=== PATIENT | male | born 1980 | race African-American/Black ===

== ENCOUNTER 2017-11-17 19:54 | Emergency (ER) | payer SELFPAY ==
[~2017-11-17] VITALS: Ht 175.3 cm; Wt 77.0 kg
[2017-11-18 00:49] LABS: BASOPHILS % 0.6 % (0.0-2.0); EOSINOPHILS % 0.5 % (0.0-5.0); HEMATOCRIT. 40.7 % (42.0-52.0); HEMOGLOBIN. 13.7 g/dL (14.0-18.0); LYMPHOCYTES % 26.8 % (20.0-50.0); MEAN CORPUSCULAR HEMOGLOBIN 29.9 pg (28.0-32.0); MEAN CORPUSCULAR VOLUME 88.6 fL (80.0-94.0); MEAN PLATELET VOLUME 7.8 fl (7.4-10.4); MONOCYTES % 8.3 % (2.0-8.0); NEUTROPHILS % 63.8 % (40.0-76.0); PLATELET 298 x1000/uL (130-400); RED CELL DISTRIBUTION WIDTH 15.2 % (11.6-14.6)
[2017-11-18 00:55] LABS: CHLORIDE 103 mEq/L (98-107)
[2017-11-18 00:58] LABS: ETHANOL BLOOD < 10 mg/dL
[2017-11-18] MEDS ORDERED: IBUPROFEN 600MG TABLET PO STA (01:43)
[2017-11-18 03:10] LABS: METHADONE URINE SCREEN NEGATIVE (NEGATIVE)
[2017-11-18 03:11] LABS: *AMPHETAMINES SCREEN URINE NEGATIVE (NEGATIVE); *BARBITURATES SCREEN URINE NEGATIVE (NEGATIVE); *BENZODIAZEPINES SCREEN URINE NEGATIVE (NEGATIVE); CANNABINOID URINE SCREEN PRESUMTIVE POSITIVE (NEGATIVE); OPIATES URINE SCREEN NEGATIVE (NEGATIVE); PHENCYCLIDINE URINE SCREEN NEGATIVE (NEGATIVE)
[2017-11-18 03:12] LABS: *COCAINE SCREEN URINE NEGATIVE (NEGATIVE)
[2017-11-18 04:40] VITALS: BP 131/78
== END 2017-11-18 04:41 | disposition home or self-care (01) ==
LOC: ER 19:54
DX: S01.511A Laceration without foreign body of lip, initial encounter (principal); S00.03XA Contusion of scalp, initial encounter; M54.5 Low back pain; F12.10 Cannabis abuse, uncomplicated; W22.8XXA Striking against or struck by other objects, initial encounter; Y93.89 Activity, other specified; Y92.89 Other specified places as the place of occurrence of the external cause; Y99.8 Other external cause status
CPT/HCPCS: 36415; 70450; 70486; 72100; 72125; 80048; 80305; 85025; 99285; G0482

== ENCOUNTER 2018-04-12 22:35 | Emergency (ER) | payer SELFPAY ==
[~2018-04-12] VITALS: Ht 160 cm; Wt 73.0 kg
[2018-04-12] MEDS ORDERED: KETOROLAC 60MG/2ML VIAL IM ONE (23:30)
[2018-04-13 12:34] VITALS: BP 141/84
== END 2018-04-13 02:29 | disposition home or self-care (01) ==
LOC: ER 22:35
DX: S62.001A Unspecified fracture of navicular [scaphoid] bone of right wrist, initial encounter for closed fracture (principal); Y04.0XXA Assault by unarmed brawl or fight, initial encounter; Y93.89 Activity, other specified; Y92.89 Other specified places as the place of occurrence of the external cause; Z59.0 Homelessness
CPT/HCPCS: 29130; 73110; 73130; 96372; 99283; J1885